=== PATIENT | female | born 1945 | race Caucasian/White ===

== ENCOUNTER 2017-09-04 13:16 | Emergency (ER) | payer MEDICARE, MEDICAID, OTHER ==
[~2017-09-04] VITALS: Ht 160 cm; Wt 89.0 kg
[2017-09-04 13:20] VITALS: BP 141/84
[2017-09-04] MEDS ORDERED: DIPH,PERTUSS(ACELL),TET VAC/PF 0.5 ML IM-VACC ONE ×2 (13:42→14:00)
[2017-09-04] MEDS ORDERED: LIDOCAINE 1%, 20ML ONE (13:42)
[2017-09-04] MEDS ORDERED: LIDOCAINE 1%, 20ML INFIL ONE (14:00)
[2017-09-04] MEDS ORDERED: ACETAMINOPHEN 325 MG TABLET ONE (14:28)
[2017-09-04 14:29] LABS: INTERNATIONAL NORMALIZED RATIO 1.78 (0.93-1.1); PROTHROMBIN TIME 18.1 Seconds (9.6-11.5)
[2017-09-04] MEDS ORDERED: ACETAMINOPHEN 325 MG TABLET PO ONE (14:30)
[2017-09-04] MEDS ORDERED: BACITRACIN ZINC OINT 500U/GM, 0.9 GM ONE (14:56)
== END 2017-09-04 15:06 | disposition home or self-care (01) ==
LOC: ED 14:55
DX: S61.213A Laceration without foreign body of left middle finger without damage to nail, initial encounter (principal); W23.0XXA Caught, crushed, jammed, or pinched between moving objects, initial encounter; Y93.89 Activity, other specified; Y92.89 Other specified places as the place of occurrence of the external cause; Y99.8 Other external cause status; E78.00 Pure hypercholesterolemia, unspecified; I48.91 Unspecified atrial fibrillation; Z79.01 Long term (current) use of anticoagulants
CPT/HCPCS: 12041; 36415; 85610; 90471; 90715